=== PATIENT | male | born 1990 | race African-American/Black ===

== ENCOUNTER 2016-07-30 09:14 | Emergency (ER) | payer OTHER, SELFPAY ==
[2016-07-30 09:48] LABS: Bilirubin Negative (Negative); Blood, Urine Trace (Negative); Glucose, Urine (Dipstick) Negative (Negative); Ketone, Urine Negative (Negative); Nitrite Negative (Negative); Protein, Urine (Dipstick) Trace mg/dL (Neg-Trace)
[2016-07-30 09:55] LABS: Bacteria/HPF Rare-Few HPF (None Seen); Squamous Epithelial 0-3 HPF (0-3)
--- NOTE | 2016-07-30 10:21 | ERRECORD ---
[facility] EMERGENCY RECORD HPI GENERAL (10:06 [facility]) CHIEF COMPLAINT: Patient presents for evaluation of R groin hernia pain. HISTORIAN: History provided by patient, per patient R groin hernia pain after lifting about 60 lbs objects denies any dysuria or discharge no fever or chills / 1 female partner protected always. MECHANISM OF INJURY: heavy lifting. LOCATION: Symptoms are localized, most severe to R hernia groin region. QUALITY: Pain is dull in nature, described as aching. SEVERITY: Maximum severity of symptoms moderate, Currently symptoms are moderate. TIME COURSE: Gradual onset of symptoms, There has been no change in the patient's symptoms over time. EXACERBATED BY: Patient's condition exacerbated by heavy lifting. RELIEVED BY: Patient's condition relieved by rest. ROS (10:08 [facility]) CONSTITUTIONAL: Negative constitutional review of systems. CARDIOVASCULAR: Negative cardiovascular review of systems. RESPIRATORY: Negative respiratory review of systems. GI: Negative gastrointestinal review of systems. GENITOURINARY MALE: Historian denies dysuria, denies hematuria, denies hesitancy, denies penile discharge, denies urinary frequency, denies urine output changes, denies urinary retention. MUSCULOSKELETAL: R inguinal pain. SKIN: Negative skin review of systems. NEUROLOGIC: Negative neurologic review of systems. NOTES: All systems reviewed, negative except as described above. PAST MEDICAL HISTORY (09:34 [facility]) MEDICAL HISTORY: Flu vaccine up to date, Tetanus immunization up to date,. MALE SURGICAL HISTORY: Patient has no surgical history. PSYCHIATRIC HISTORY: No previous psychiatric history. SOCIAL HISTORY: Patient denies alcohol use, Patient denies drug use, Patient has no smoking history. FAMILY HISTORY: No known family hisotry. KNOWN ALLERGIES No Known Drug Allergies CURRENT MEDICATIONS (09:21 [facility]) None VITAL SIGNS (09:18 [facility]) &a-1R&a+25V*p+0X*e4728S*c202B*c15G*c2P*p-0X&a-25V&a+1R Name: Nilesh Cutler : 1990 M26 MedRec: [id number] AcctNum: [id number] Prepared: FriJul 30, 2016 10:38 by Interface Page 1 of 2 pMD [facility] EMERGENCY RECORD VITAL SIGNS: BP: 109/63, Pulse: 81, Resp: 16, Temp: 98.4 (Oral), Pain: 7, O2 sat: 97 on Room Air, Time: 07/30/2016 09:18. PHYSICAL EXAM (10:35 [facility]) CONSTITUTIONAL: Vital signs reviewed, Patient afebrile, Pulse normal, Blood pressure normal, Respiratory rate normal, Patient appears non toxic, Patient appears pain free, Patient alert and oriented to person, place and time. HEAD: Head exam normal. RESPIRATORY CHEST: Respiratory and chest exam normal. CARDIOVASCULAR: Cardiovascular assessment normal. ABDOMEN MALE: Abdominal exam normal. GENITOURINARY MALE: Genitourinary exam included findings of penis normal, Epididymis normal, no urethral discharge, no lesions, no hernia, R femoral hernia region mildly tender / no bulging or hernia seen. SKIN: Skin exam normal. DOCTOR NOTES (10:03 [facility]) TEXT: 26 yo M with R groin inguinal pain after heavy lifting no urine symptoms / or urine discharge protected sex with 1 partner / impression : Inguinal hernia versus strain R / however urine some wbc and bacteria also sent gc/chlamydia / and will call if any positive result / patient would like to hold treatment for now. PATIENT PLAN: The patient will be discharged, The patient will follow up with primary care physician. DATA REVIEWED: Lab data reviewed, Discussed with family. PROBLEM LIST No recorded problems DIAGNOSIS (10:10 [facility]) FINAL: PRIMARY: R inguinal strain. PRESCRIPTION (10:10 [facility]) acetaminophen-codeine: TABLET : 300 mg-30 mg : ORAL : Quantity: 1 Unit: tab(s) Route: ORAL Schedule: every 6 hours PRN Dispense: 15 Unit: tab(s) May substitute. Refills: No Refills . NOTES: No Refills. DISPOSITION PATIENT: Disposition Type: Discharge, Disposition: *Discharge Home. (10:10 [facility]) Patient left the department. (10:16 [facility]) Perales: DIXIE=MD Michelle, Geovanna MSPE=CASSANDRA Carvajal, Enedelia &a-1R&a+25V*p+0X*u4155O*c202B*c15G*c2P*p-0X&a-25V&a+1R Name: Nilesh Cutler : 1990 M26 MedRec: [id number] AcctNum: [id number] Prepared: Jo Jul 30, 2016 10:38 by Interface Page 2 of 2 pMD MTDD
--- NOTE | 2016-07-30 10:21 | PICIS ---
[facility] EMERGENCY RECORD TRIAGE (09:20 [facility]) TRIAGE NOTES: sts lifting heavy object at work last night and now has pain to right groin. (09:20 [facility]) PATIENT: NAME: Nilesh Cutler, AGE: 26, GENDER: male, : [facility] 1990, TIME OF GREET: FriJul 30, 2016 09:15, PREFERRED LANGUAGE: Serbian, ETHNICITY: Not or , ECODE BILLING MAP: [facility], SSN: [id number], Zip Code: [address], KG WEIGHT: 63.50, PHONE: , , , PERSON ID: [id number], PCP: none. (09:20 [facility]) COMPLAINT: GROIN PAIN. (09:20 [facility]) ADMISSION: URGENCY: 4 Non Urgent, ADMISSION SOURCE: Home, TRANSPORT: CAR, BED: ER -04. (09:20 [facility]) SIRS SCORING: Heart Rate 55-109 (0), Temp range 96.8-101.1 (0), respiratory rate 12-24 (0), Mental Status altered: no (0), Total SIRS Score 0. (09:34 [facility]) TREATMENTS IN PROGRESS: Treatments given Prehospital: none today. (09:34 [facility]) PROVIDERS: TRIAGE NURSE: Enedelia Carvajal RN. (09:20 [facility]) VITAL SIGNS: BP 109/63, Pulse 81, Resp 16, Temp 98.4, (Oral), Pain 7, O2 Sat 97, on Room Air, Time 07/30/2016 09:18. (09:18 [facility]) PREVIOUS VISIT ALLERGIES: No Known Drug Allergies. (09:20 [facility]) No Known Drug Allergies. (09:34 [facility]) KNOWN ALLERGIES No Known Drug Allergies CURRENT MEDICATIONS (09:21 [facility]) None VITAL SIGNS (09:18 [facility]) VITAL SIGNS: BP: 109/63, Pulse: 81, Resp: 16, Temp: 98.4 (Oral), Pain: 7, O2 sat: 97 on Room Air, Time: 07/30/2016 09:18. NURSING ASSESSMENT: FOCUSED (09:22 [facility]) CONSTITUTIONAL: Patient arrives ambulatory, Gait steady, History obtained from patient, Patient appears comfortable, Patient cooperative, Patient alert, Oriented to person, place and time, Skin warm, Skin dry. PAIN: dull pain, right groin, Onset of pain last night. NEURO: Focused neuro assessment findings include patient alert. GCS: Eye opening: (4) - Spontaneous, Verbal: (5) - Oriented/conversive, Motor: (6) - Obeys commands/Spontaneous, GCS Total: 15. ABDOMEN: Focused abdominal assessment findings include abdomen soft. GENITOURINARY: Notes: denies urinary sx. MUSCULOSKELETAL: Focused musculoskeletal assessment findings include normal range of motion. &a-1R&a+25V*p+0X*t6221E*c202B*c15G*c2P*p-0X&a-25V&a+1R Name: Nilesh Cutler : 1990 M26 MedRec: [id number] AcctNum: [id number] Prepared: FriJul 30, 2016 10:45 by Interface Page 1 of 5 pMD [facility] EMERGENCY RECORD LACERATION: Focused laceration assessment not applicable. NURSING PROCEDURE: DISCHARGE NOTE (10:15 [facility]) DISCHARGE: Patient discharged to home, ambulating without assistance, accompanied by friend, Summary of Care printed/ provided, Discharge instructions given to patient, Simple or moderate discharge teaching performed, Prescriptions given and instructions on side effects given, Above person(s) verbalized understanding of discharge instructions and follow-up care, Patient treated and evaluated by physician. BELONGINGS: Belongings remain with patient. ORDER DETAILS Order Name: GC/Chlamydia Profile by PCR, Status: Active, Time: 09:36 07/30/2016, User: DIXIE, - Ordered for: MD Martinez Kim, - Entered by: MD Martinez Kim - Jo Jul 30, 2016 09:36, - Quantity: 1, Order Name: Urinalysis w/ Rflx Microscopic, Status: Active, Time: 09:26 07/30/2016, User: DIXIE, - Ordered for: MD Martinez Kim, - Entered by: MD Martinez Kim - Tue Jul 30, 2016 09:26, - Quantity: 1. HPI GENERAL (10:06 [facility]) CHIEF COMPLAINT: Patient presents for evaluation of R groin hernia pain. HISTORIAN: History provided by patient, per patient R groin hernia pain after lifting about 60 lbs objects denies any dysuria or discharge no fever or chills / 1 female partner protected always. MECHANISM OF INJURY: heavy lifting. LOCATION: Symptoms are localized, most severe to R hernia groin region. QUALITY: Pain is dull in nature, described as aching. SEVERITY: Maximum severity of symptoms moderate, Currently symptoms are moderate. TIME COURSE: Gradual onset of symptoms, There has been no change in the patient's symptoms over time. EXACERBATED BY: Patient's condition exacerbated by heavy lifting. RELIEVED BY: Patient's condition relieved by rest. ROS (10:08 [facility]) CONSTITUTIONAL: Negative constitutional review of systems. CARDIOVASCULAR: Negative cardiovascular review of systems. RESPIRATORY: Negative respiratory review of systems. GI: Negative gastrointestinal review of systems. &a-1R&a+25V*p+0X*e2865H*c202B*c15G*c2P*p-0X&a-25V&a+1R Name: Nilesh Cutler : 1990 M26 MedRec: [id number] AcctNum: [id number] Prepared: Jo Jul 30, 2016 10:45 by Interface Page 2 of 5 pMD [facility] EMERGENCY RECORD GENITOURINARY MALE: Historian denies dysuria, denies hematuria, denies hesitancy, denies penile discharge, denies urinary frequency, denies urine output changes, denies urinary retention. MUSCULOSKELETAL: R inguinal pain. SKIN: Negative skin review of systems. NEUROLOGIC: Negative neurologic review of systems. NOTES: All systems reviewed, negative except as described above. PAST MEDICAL HISTORY (09:34 [facility]) MEDICAL HISTORY: Flu vaccine up to date, Tetanus immunization up to date,. MALE SURGICAL HISTORY: Patient has no surgical history. PSYCHIATRIC HISTORY: No previous psychiatric history. SOCIAL HISTORY: Patient denies alcohol use, Patient denies drug use, Patient has no smoking history. FAMILY HISTORY: No known family hisotry. PHYSICAL EXAM (10:35 [facility]) CONSTITUTIONAL: Vital signs reviewed, Patient afebrile, Pulse normal, Blood pressure normal, Respiratory rate normal, Patient appears non toxic, Patient appears pain free, Patient alert and oriented to person, place and time. HEAD: Head exam normal. RESPIRATORY CHEST: Respiratory and chest exam normal. CARDIOVASCULAR: Cardiovascular assessment normal. ABDOMEN MALE: Abdominal exam normal. GENITOURINARY MALE: Genitourinary exam included findings of penis normal, Epididymis normal, no urethral discharge, no lesions, no hernia, R femoral hernia region mildly tender / no bulging or hernia seen. SKIN: Skin exam normal. EVENTS TRANSFER: Triage to Emergency Emergency Room -04. (FriJul 30, 2016 09:20 MS[facility]) Removed from Emergency Emergency Room -04. (10:16 [facility]) DOCTOR NOTES (10:03 [facility]) TEXT: 26 yo M with R groin inguinal pain after heavy lifting no urine symptoms / or urine discharge protected sex with 1 partner / impression : Inguinal hernia versus strain R / however urine some wbc and bacteria also sent gc/chlamydia / and will call if any positive result / patient would like to hold treatment for now. PATIENT PLAN: The patient will be discharged, The patient will follow up with primary care physician. DATA REVIEWED: Lab data reviewed, Discussed with family. &a-1R&a+25V*p+0X*g1600S*c202B*c15G*c2P*p-0X&a-25V&a+1R Name: Nilesh Cutler : 1990 M26 MedRec: [id number] AcctNum: [id number] Prepared: FriJul 30, 2016 10:45 by Interface Page 3 of 5 pMD [facility] EMERGENCY RECORD PROBLEM LIST No recorded problems DIAGNOSIS (10:10 [facility]) FINAL: PRIMARY: R inguinal strain. DISPOSITION PATIENT: Disposition Type: Discharge, Disposition: *Discharge Home. (10:10 [facility]) Patient left the department. (10:16 [facility]) INSTRUCTION (10:10 [facility]) DISCHARGE: GROIN STRAIN. SPECIAL: avoid heavy lifting for next few days Follow-up with your primary physician as needed. PRESCRIPTION (10:10 [facility]) acetaminophen-codeine: TABLET : 300 mg-30 mg : ORAL : Quantity: 1 Unit: tab(s) Route: ORAL Schedule: every 6 hours PRN Dispense: 15 Unit: tab(s) May substitute. Refills: No Refills . NOTES: No Refills. IMAGING (10:16 [facility]) *DISCHARGE INSTRUCTIONS RECEIPT: Image captured from scanner. *SUPPLY CHARGE SHEET: Image captured from scanner. ADMIN (10:36 KN) DIGITAL SIGNATURE: MD aMrtinez Kim. RESULTS (10:02 KN) LABORATORY: Urine Microscopic Collection DT: FriJul 30, 2016 09:53, RBC/HPF 4-6 HPF, Range (0-3), *WBC/HPF 4-6 - H HPF, Range (0-3), Squamous Epithelial 0-3 HPF, Range (0-3), Bacteria/HPF Rare-Few HPF, Range (None Seen). Urinalysis w/ Rflx Microscopic Collection DT: FriJul 30, 2016 09:53, Color Yellow , Range (Yellow), Clarity Slightly Cloudy , Range (Clear), Specific [place], Urine 1.015 , Range (1.005-1.030), pH, Urine 8.5 , Range (5.0-9.0), Leukocyte Negative , Range (Negative), Nitrite Negative , Range (Negative), Protein, Urine (Dipstick) Trace mg/dL, Range (Neg-Trace), Glucose, Urine (Dipstick) Negative mg/dL, Range (Negative), Ketone, Urine Negative mg/dL, Range (Negative), *Urobilinogen 2.0 - H mg/dL, Range (0.2-1.0), Bilirubin Negative , Range (Negative), &a-1R&a+25V*p+0X*l5206F*c202B*c15G*c2P*p-0X&a-25V&a+1R Name: Nilesh Cutler : 1990 M26 MedRec: [id number] AcctNum: [id number] Prepared: FriJul 30, 2016 10:45 by Interface Page 4 of 5 pMD [facility] EMERGENCY RECORD *Blood, Urine Trace - H , Range (Negative). Perales: DIXIE=MD Michelle, Geovanna MSPE=CASSANDRA Carvajal, Enedelia &a-1R&a+25V*p+0X*r4927C*c202B*c15G*c2P*p-0X&a-25V&a+1R Name: Nilesh Cutler : 1990 M26 MedRec: [id number] AcctNum: [id number] Prepared: Jo Jul 30, 2016 10:45 by Interface Page 5 of 5 pMD MTDD
== END 2016-07-30 10:15 | disposition home or self-care (01) ==
LOC: NAV ERS 09:14
DX: S39.011A Strain of muscle, fascia and tendon of abdomen, initial encounter (principal); X58.XXXA Exposure to other specified factors, initial encounter
CPT/HCPCS: 81003; 81015; 87491; 87591; 99283